=== PATIENT | female | born 1940 | race Caucasian/White ===

== ENCOUNTER 2019-09-11 00:03 | Observation (INO) ==
[2019-09-11] MEDS ORDERED: Aspirin 81 MG TAB.CHEW PO ONE (00:13)
[2019-09-11 00:42] LABS: Basophils # 0.1 K/mcL (0.0-0.2); Basophils % 0.7 %; Eosinophils # 0.4 K/mcL (0.0-0.6); Eosinophils % 4.4 %; Hematocrit 40.7 % (35.3-44.9); Hemoglobin 13.1 g/dL (11.5-15.4); Immature Granulocytes % 0.2 % (0-4); Lymphocytes # 1.4 K/mcL (0.6-4.6); Lymphocytes % 16.4 %; Mean Corpuscular HGB Conc 32.2 g/dL (31.6-35.5); Mean Corpuscular Hemoglobin 31.6 pg (28.0-33.3); Mean Corpuscular Volume 98.3 fL (83.0-100.0); Mean Platelet Volume 10.7 fL (9.4-12.4); Monocytes # 0.5 K/mcL (0.0-1.3); Monocytes % 6.2 %; Neutrophils # 6.1 K/mcL (1.6-8.9); Platelet Count 214 K/mcL (140-400); Red Blood Count 4.14 M/mcL (3.82-4.97); Red Cell Distribution Width 13.6 % (11.5-14.5); Segmented Neutrophils % 72.1 %; White Blood Count 8.4 K/mcL (4.3-11.1)
[2019-09-11 00:46] LABS: Activated Partial Thrombo Time 29.6 Seconds (26.0-36.0)
[2019-09-11 00:54] LABS: BUN/Creatinine Ratio 34 (6-26); Blood Urea Nitrogen 31 mg/dL (8-23); Calcium 9.6 mg/dL (8.6-10.3); Carbon Dioxide 25 mEq/L (23-29); Chloride 106 mEq/L (98-107); Glucose 117 mg/dL (70-105); Osmolality,Calculated 298 (280-300); Potassium 4.3 mEq/L (3.5-5.1); Sodium 140 mEq/L (136-145); eGFR For African Americans > 60 (> 60); eGFR For Non-African Americans 59 (> 60)
[2019-09-11] MEDS ORDERED: *HR* Heparin 5,000 UNIT/ML VIAL IVP PRN ×2 (00:59)
[2019-09-11] MEDS ORDERED: *HR* Heparin 5,000 UNIT/ML VIAL IVP ONE (00:59)
[2019-09-11 01:00] LABS: Troponin I 0.16 ng/mL (< 0.04)
[2019-09-11] MEDS ORDERED: Heparin 25,000 UNIT/250 ML D5W 25,000 UNIT/250 ML IV.SOLN IVC SCH (01:00)
[2019-09-11 01:32] LABS: Heparin anti-factor XA UFH < 0.04 IU/mL (0.30-0.70)
[2019-09-11] MEDS: Nitroglycerin 0.4 MG TAB.SUBL SL SCH ×2 (02:08→02:10)
[2019-09-11] MEDS ORDERED: Naloxone 0.4 MG/ML INJ IVP PRN (04:22)
[2019-09-11 07:29] LABS: Hematocrit 36.5 % (35.3-44.9); Hemoglobin 11.8 g/dL (11.5-15.4); Mean Corpuscular HGB Conc 32.3 g/dL (31.6-35.5); Mean Corpuscular Hemoglobin 31.4 pg (28.0-33.3); Mean Corpuscular Volume 97.1 fL (83.0-100.0); Mean Platelet Volume 11.1 fL (9.4-12.4); Platelet Count 183 K/mcL (140-400); Red Blood Count 3.76 M/mcL (3.82-4.97); Red Cell Distribution Width 13.7 % (11.5-14.5); White Blood Count 6.5 K/mcL (4.3-11.1)
[2019-09-11 07:50] LABS: BUN/Creatinine Ratio 32 (6-26); Blood Urea Nitrogen 28 mg/dL (8-23); Calcium 9.5 mg/dL (8.6-10.3); Carbon Dioxide 25 mEq/L (23-29); Chloride 108 mEq/L (98-107); Glucose 100 mg/dL (70-105); Magnesium 1.8 mg/dL (1.6-2.6); Osmolality,Calculated 294 (280-300); Potassium 3.9 mEq/L (3.5-5.1); Sodium 139 mEq/L (136-145); eGFR For African Americans > 60 (> 60); eGFR For Non-African Americans > 60 (> 60)
[2019-09-11 07:54] LABS: Troponin I 0.26 ng/mL (< 0.04)
[2019-09-11] MEDS: Aspirin 81 MG TAB.CHEW PO SCH (09:20)
[2019-09-11] MEDS: Metoprolol XL (24 HR) Succ 50 MG TAB.ER.24H PO SCH (09:20)
[2019-09-11] MEDS: amLODIPine 5 MG TABLET PO SCH (11:55)
[2019-09-11] MEDS: lisinopriL 20 MG TABLET PO SCH ×2 (11:56→21:13)
[2019-09-11] MEDS ORDERED: 0.9 % Sodium Chloride 1,000 ML ONE (14:35)
[2019-09-11] MEDS ORDERED: Heparin 1,000 UNITS/500 mL 500 ML ONE (14:36)
[2019-09-11] MEDS ORDERED: ISOVUE-370 200 ML INFUS..BTL ONE ×2 (14:36→15:15)
[2019-09-11] MEDS ORDERED: Nitroglycerin 1,000 MCG/10 ML VIAL IV ONE (14:36)
[2019-09-11] MEDS ORDERED: *HR* Heparin 10,000 UNIT/10 ML VIAL ONE (14:36)
[2019-09-11] MEDS ORDERED: *HR* Midazolam HCl 2 MG/2 ML VIAL ONE (15:00)
[2019-09-11] MEDS ORDERED: *HR* FentaNYL (PF) 100 MCG/2 ML VIAL ONE (15:01)
[2019-09-11] MEDS ORDERED: Melatonin 3 MG TABLET PO SCH (21:00)
[2019-09-12 07:46] LABS: BUN/Creatinine Ratio 29 (6-26); Blood Urea Nitrogen 27 mg/dL (8-23); Calcium 9.5 mg/dL (8.6-10.3); Carbon Dioxide 24 mEq/L (23-29); Chloride 106 mEq/L (98-107); Glucose 96 mg/dL (70-105); Magnesium 1.7 mg/dL (1.6-2.6); Osmolality,Calculated 291 (280-300); Phosphorous 3.7 mg/dL (2.7-4.5); Sodium 138 mEq/L (136-145); eGFR For African Americans > 60 (> 60); eGFR For Non-African Americans 58 (> 60)
[2019-09-12] MEDS: Metoprolol XL (24 HR) Succ 50 MG TAB.ER.24H PO SCH (08:39)
[2019-09-12] MEDS: amLODIPine 5 MG TABLET PO SCH (08:39)
[2019-09-12] MEDS: Aspirin 81 MG TAB.CHEW PO SCH (08:39)
[2019-09-12] MEDS: lisinopriL 20 MG TABLET PO SCH (08:40)
[2019-09-12] MEDS ORDERED: polyethylene glycoL 3350 17 GM POWD.PACK PO SCH (09:00)
[2019-09-12] MEDS ORDERED: allopurinoL 100 MG TABLET PO SCH (09:00)
[2019-09-12 11:33] VITALS: BP 151/61
== END 2019-09-12 13:10 | disposition short-term general hospital (02) ==
LOC: EMEROOARM 00:03 → 3BNU 00:03 → SUATTDRO 01:51 → 3BNU 02:13
PROVIDERS: ADMIT Internal Medicine; ATTEND Internal Medicine